=== PATIENT | male | born 1960 | race Asian ===

== ENCOUNTER 2020-03-09 01:05 | Emergency (ER) | payer SELFPAY ==
[~2020-03-09] VITALS: Ht 175.3 cm; Wt 74.8 kg
[2020-03-09 01:06] VITALS: Ht 175.3 cm; Wt 74.8 kg
[2020-03-09 01:24] VITALS: BP 139/95
== END 2020-03-09 01:24 | disposition left against medical advice (07) ==
LOC: ED 01:05
DX: T78.40XA Allergy, unspecified, initial encounter (principal); X58.XXXA Exposure to other specified factors, initial encounter